=== PATIENT | male | born 1955 | race Caucasian/White ===

== ENCOUNTER → 2022-06-05 | Outpatient (CLI) | payer MEDICARE ==
[~2022-06-05] MED LIST: ASP325T PO; CEFD300C PO; CEFD300C3 PO; FERR-57 PO; MULT-974 PO; POLY17PO23 PO; SENN1TAB76 PO; TRZ50T PO
--- NOTE | 2022-06-05 13:51 | Diagnostic Imaging Report ---
INDICATION: Follow-up fracture. COMPARISON: 11/08/2013 FINDINGS: Multiple radiographic views of the left shoulder were obtained. There is acute longitudinally oriented fracture involving the lateral margins of the humeral head, presumably involving the greater tuberosity. There is mild displacement of the fracture fragments. Glenohumeral joint spaces are maintained. There is chronic deformity to the distal clavicle consistent with probable old healed fracture. Included portions of the left hemithorax are clear. IMPRESSION: 1. Acute-appearing fracture of the left humeral head, as above. Dictated by: Dictated on workstation # [id number]
== END ==
LOC: RAD FS 09:50
PROVIDERS: ATTEND Nurse Practitioner
DX: S42.252D Displaced fracture of greater tuberosity of left humerus, subsequent encounter for fracture with routine healing (principal); X58.XXXD Exposure to other specified factors, subsequent encounter
CPT/HCPCS: 73030

== ENCOUNTER → 2022-06-22 | Outpatient (CLI) | payer MEDICARE ==
--- NOTE | 2022-06-22 09:31 | Diagnostic Imaging Report ---
INDICATION: Displaced fracture of the glenoid cavity/scapula. EXAMINATION: CT of the left upper extremity without contrast. FINDINGS: There is a comminuted fracture through the proximal humerus with a large fracture fragment involving the greater tuberosity. Mild lateral and inferior displacement of the osseous fragment is seen in relation to the humerus. The fracture predominantly involves the superior lateral aspect of the humeral head with a corresponding comminuted anteriorly and inferiorly displaced fracture of the anterior inferior glenoid suggesting a recent humeral head dislocation. Minimal heterotopic ossification about the glenoid is noted suggesting a subacute process. There are no dislocations. There are questioned fractures of the posteromedial 2nd and 3rd ribs which may be chronic. Correlate clinically. There is marked deformity of the distal clavicle and portions of the proximal clavicle which appear chronic. Soft tissues demonstrate no acute abnormalities. The visualized left lung is unremarkable. IMPRESSION: 1. Large displaced Hill-Sachs type fracture of the superolateral posterior humeral head with a corresponding displaced osseous Bankart lesion which appears comminuted with early developing surrounding callus formation. 2. Likely old fractures of the posterior left upper ribs and left clavicle, correlate with remote history of trauma. Dictated by: Dictated on workstation # [id number]
== END ==
LOC: RAD FS 07:59
PROVIDERS: ATTEND Nurse Practitioner
DX: S42.142A Displaced fracture of glenoid cavity of scapula, left shoulder, initial encounter for closed fracture (principal); S52.252A Displaced comminuted fracture of shaft of ulna, left arm, initial encounter for closed fracture; X58.XXXA Exposure to other specified factors, initial encounter
CPT/HCPCS: 73200